=== PATIENT | female | born 1935 | race Caucasian/White ===

== ENCOUNTER → 2016-10-01 | Outpatient (CLI) | payer OTHER, MEDICARE ==
--- NOTE | 2016-10-01 16:35 | DX ---
PA and Lateral Chest - October 01, 2016 12:38 p.m. Indication: Dyspnea. Comparison: Two-view chest dated April 02, 2014. Findings: Linear scarring versus atelectasis at the left base is improved since April 2014. Diffuse peribronchial thickening is unchanged. No pulmonary edema, airspace consolidation or effusion. The he art size is normal. Impression: 1. No acute process. 2. Minimal airways disease and left basilar scarring versus atelectasis.
== END ==
LOC: FIMAGING 12:27
PROVIDERS: ATTEND Internal Medicine Critical Care Medicine
DX: R06.02 Shortness of breath (principal); G47.33 Obstructive sleep apnea (adult) (pediatric)

== ENCOUNTER 2016-10-21 12:44 | Emergency (ER) | payer OTHER, MEDICARE, MEDICAID ==
[2016-10-21 13:06] VITALS: BP 159/72; PULSE 73; RESP 22; TEMP 98.8; O2SAT 92
--- NOTE | 2016-10-21 13:33 | EDPHY ---
H & P Time Seen by Provider: 10/21/16 13:16 HPI/ROS: CHIEF COMPLAINT: " I have urinary tract infection" HISTORY OF PRESENT ILLNESS: 80-year-old female with history of stress incontinence with vaginal prolapse, surgery in August [address] Brendan Hightower in the ER complaining of new hematuria and dysuria since this morning. She does note chronic incontinence since the surgery and expresses her displeasure with surgery performed in August 2016. She denies: Fever, chills, nausea, vomiting, flu-like symptoms, back or flank pain, chest pain. REVIEW OF SYSTEMS: A ten point review of systems was performed and is negative with the exception of the items mentioned in the HPI PAST MEDICAL & SURGICAL HISTORY: Vaginal prolapse With surgery August 2016 SOCIAL HISTORY: retired nurse PHYSICAL EXAM (Prior to examination, patient consented to physical exam, hands were washed and my usual and customary physical exam procedures followed) 1) GENERAL: Well-developed, well-nourished, alert and oriented. Appears nontoxic . 2) HEAD: Normocephalic, atraumatic 3) HEENT: Pupils equal, round, reactive to light bilaterally. Sclera anicteric. 4) NECK: Full range of motion, no meningeal signs. 5) LUNGS: Clear auscultation bilaterally, no wheezes, no rhonchi, no retractions. 6) HEART: Regular rate and rhythm, no murmur, no heave, no gallop. 7) ABDOMEN: No guarding, no rebound, no focal tenderness, negative McBurney's, negative Zhou's, negative Rovsing's, negative peritoneal sign, 8) MUSCULOSKELETAL: No peripheral edema or discoloration. 9) BACK: No CVA tenderness,. 10) SKIN: No rash, no petechiae. 11) Psychiatric: Patient is oriented X 3 DIFFERENTIAL DIAGNOSIS: in no particular include but not limited to pyelonephritis, nephrolithiasis, cystitis, urosepsis Smoking Status: Never smoked Constitutional: Initial Vital Signs Temperature (C) 37.1 C 10/21/16 13:02 Heart Rate 73 10/21/16 13:02 Respiratory Rate 22 H 10/21/16 13:02 Blood Pressure 159/72 H 10/21/16 13:02 O2 Sat (%) 92 10/21/16 13:02 O2 Delivery Mode Room Air Allergies/Adverse Reactions: Penicillins Allergy (Severe, Verified 08/03/16 11:10) Wheezing Sulfa (Sulfonamide Antibiotics) Allergy (Severe, Verified 08/03/16 11:10) Wheezing ciprofloxacin [From Cipro] Allergy (Verified 08/03/16 11:10) ciprofloxacin HCl [From Cipro] Allergy (Verified 08/03/16 11:10) oseltamivir phosphate [From Tamiflu] Allergy (Verified 08/03/16 11:10) Home Medications: Medication Instructions Recorded Albuterol [Proventil Inhaler HFA 2 puffs IH DAILY PRN 10/23/09 (*)] Hydrochlorothiazide [HCTZ (*)] 50 mg PO DAILY 10/23/09 Levothyroxine [Synthroid 125 mcg 125 mcg PO DAILY06 10/23/09 (*)] Metoprolol Tartrate [Lopressor 100 100 mg PO BID 10/23/09 mg (*)] Ascorbic Acid [Vitamin C 500 mg 1,000 mg PO DAILY 12/25/09 (*)] Cyanocobalamin [Vitamin B12 1,000 mcg IM Q30D 12/25/09 1000MCG/ML (*)] Ipratropium/Albuterol [Duoneb (*)] 3 ml IH BID 12/25/09 Aspirin [Aspirin 325 mg (*)] 325 mg PO DAILY 01/21/11 Nitrofurantoin Monohyd/M-Cryst 100 mg PO BID #14 capsule 08/24/16 [Macrobid 100 mg Capsule] Cephalexin [Keflex] 500 mg PO TID 7 Days 10/21/16 Phenazopyridine HCl [Pyridium] 200 mg PO PC #10 tab 10/21/16 MDM/Departure - [facility] Course/Re-evaluation: 2:40 p.m.: Re-evaluation. She appears well. She would like to go home. No complaints of abdominal pain. Doubt acute surgical abdominal pathology. Discussed her urinalysis positive for blood, positive for leukocytes. Urine cultured. Plan will be starting on Keflex. She requests name of another urologist. Has been given the name of on-call urologist Dr. Fred Christianson for follow-up. Doubt urosepsis. Doubt pyelonephritis. Usual customary urologic precautions instructions provided. - Depart Disposition: Home, Routine, Self-Care Clinical Impression: Urinary tract infection Qualifiers: Urinary tract infection type: acute cystitis Hematuria presence: with hematuria Qualified Code(s): N30.01 - Acute cystitis with hematuria Condition: Good Instructions: Urinary Tract Infection in Women (ED) Additional Instructions: Return to the ER immediately if you experience fevers/chills, flu like symptoms , inability to tolerate oral intake, nausea or vomiting, or any other symptoms that concern you. Prescriptions: Cephalexin [Keflex] 500 mg PO TID 7 Days Phenazopyridine HCl [Pyridium] 200 mg PO PC #10 tab Referrals: Radha Hawkins MD [Primary Care Provider] - As per Instructions Fred Christianson MD [Medical Doctor] - 2-3 days, call for appt. (Dr. Fred Christianson is a urologist)
[2016-10-21 14:35] LABS: COLOR AMBER; LEUKOCYTE ESTERASE,URINE 1+ (NEGATIVE); NITRITE,URINE NEGATIVE (NEGATIVE)
[2016-10-21 14:47] LABS: MUCUS TRACE /lpf (NONE-1+); RBC,URINE 50-182 /hpf (0-3); WBC,URINE 50-182 /hpf (0-3)
== END 2016-10-21 15:13 | disposition home or self-care (01) ==
DX: N30.01 Acute cystitis with hematuria (principal); B96.89 Other specified bacterial agents as the cause of diseases classified elsewhere; Z79.82 Long term (current) use of aspirin